=== PATIENT | female | born 1975 | race Caucasian/White ===

== ENCOUNTER 2017-09-03 07:05 | Day surgery (SDC) | payer OTHER ==
[~2017-09-03] VITALS: Ht 170.2 cm; Wt 119.9 kg
[~2017-09-03 07:05] MED LIST: AMLO5 PO; ATOR20; CARV3.125 PO; FURO20 PO; HYDACE10B PO; HYDCHL25; HYDCHL25 PO; HYDR1TAB94; IBUHYD PO; Imitrex50 MG; METF500 PO; POTA10T PO; TRAM50; ZESTRIL40 MG; ZYRTEC10 M1
== END 2017-09-03 09:30 | disposition home or self-care (01) ==
LOC: ORSCSDS 07:05
PROVIDERS: Internal Medicine Gastroenterology
PROC: 0DBL8ZX Excision of Transverse Colon, Via Natural or Artificial Opening Endoscopic, Diagnostic (ICD-10-PCS; principal; 2017-09-03 08:30)
PROC: 0DBN8ZX Excision of Sigmoid Colon, Via Natural or Artificial Opening Endoscopic, Diagnostic (ICD-10-PCS; principal; 2017-09-03 08:30)
PROC: 0DBK8ZX Excision of Ascending Colon, Via Natural or Artificial Opening Endoscopic, Diagnostic (ICD-10-PCS; principal; 2017-09-03 08:30)
PROC: 0DBH8ZX Excision of Cecum, Via Natural or Artificial Opening Endoscopic, Diagnostic (ICD-10-PCS; principal; 2017-09-03 08:30)
PROC: 0DBM8ZX Excision of Descending Colon, Via Natural or Artificial Opening Endoscopic, Diagnostic (ICD-10-PCS; principal; 2017-09-03 08:30)
DX: K92.1 Melena (principal); K64.8 Other hemorrhoids; K64.4 Residual hemorrhoidal skin tags; D12.0 Benign neoplasm of cecum; D12.2 Benign neoplasm of ascending colon; D12.3 Benign neoplasm of transverse colon; D12.4 Benign neoplasm of descending colon; K63.5 Polyp of colon; R79.89 Other specified abnormal findings of blood chemistry; R19.4 Change in bowel habit; Z86.010 Personal history of colon polyps; R10.31 Right lower quadrant pain; I10 Essential (primary) hypertension; Z79.899 Other long term (current) drug therapy; F32.9 Major depressive disorder, single episode, unspecified; E66.9 Obesity, unspecified; Z68.41 Body mass index [BMI] 40.0-44.9, adult; G47.33 Obstructive sleep apnea (adult) (pediatric)
CPT/HCPCS: 82947; 88305; J7120

== ENCOUNTER 2023-03-20 21:05 | Emergency (ER) | payer OTHER ==
[~2023-03-20] VITALS: Ht 170.2 cm; Wt 108.9 kg
[2023-03-20 21:12] VITALS: BP 163/89
== END 2023-03-20 23:10 | disposition home or self-care (01) ==
LOC: ER 21:05
DX: S80.02XA Contusion of left knee, initial encounter (principal); W10.1XXA Fall (on)(from) sidewalk curb, initial encounter; I10 Essential (primary) hypertension; Z88.8 Allergy status to other drugs, medicaments and biological substances; Z79.899 Other long term (current) drug therapy
CPT/HCPCS: 73562-LT; 99284-25

== ENCOUNTER 2024-09-01 07:02 | Day surgery (SDC) | payer OTHER ==
[~2024-09-01 07:02] MED LIST changes: +AMLO10 PO; -CARV3.125 PO; +Carvedilol12.5 MG PO; +GLUCOPHAGE1000 M1 PO; -HYDCHL25; -HYDR1TAB94; +HYDR1TAB94 PO; +JANUMET 50-1,01 EACH PO; +Lactated Ringer's 1,000 ML IV SCH; -METF500 PO; +OZEMPIC0.25 MG/02 SQ
[2024-09-01 07:42] VITALS: BP 150/87
[2024-09-01] MEDS ORDERED: propofoL 60 ML IV ONE (08:07)
[2024-09-01] MEDS ORDERED: Lidocaine HCl 4% 5 ML SDA ONE (08:10)
--- NOTE | 2024-09-01 08:19 | NUR ---
09/01/24 0819 Arnoldo Amador History, Chart, Medications and Allergies reviewed before start of procedure.MONITOR INTACT WITH CONTINUOUS PULSE OXIMETRY, CONTINUOUS END TITAL CO2, 3-LEAD EKG AND INTERMITTENT BLOOD PRESSURE.3-LEAD EKG REVIEWED WITH PHYSICIAN PRIOR TO START OF PROCEDURE.O2 VIA POM INTACT THROUGHOUT SEDATION/PROCEDURE.See Anesthesia record.
[2024-09-01] MEDS ORDERED: Midazolam HCl 1MG / ML 2ML Vial ONE ×2 (08:27→08:38)
[2024-09-01] MEDS ORDERED: Ondansetron HCl 2 MG / ML 2ML Vial IV PRN (08:55)
[2024-09-01 08:57] VITALS: BP 121/80
--- NOTE | 2024-09-01 09:21 | NUR ---
Discharge instructions reviewed with patient. Patient verbalizes understanding. Copy given to patient to take home. Patient States Post-Procedure ride home has been arranged. Discharged via wheelchair to private car for ride home.
== END 2024-09-01 09:20 | disposition home or self-care (01) ==
LOC: ORSCMMR 07:02 → ORD 08:00 → ORSCMMR 08:00
PROVIDERS: Internal Medicine Gastroenterology
PROC: 0DB48ZX Excision of Esophagogastric Junction, Via Natural or Artificial Opening Endoscopic, Diagnostic (ICD-10-PCS; principal; 2024-09-01 08:00)
PROC: 0DBL8ZX Excision of Transverse Colon, Via Natural or Artificial Opening Endoscopic, Diagnostic (ICD-10-PCS; principal; 2024-09-01 08:00)
PROC: 0DBN8ZX Excision of Sigmoid Colon, Via Natural or Artificial Opening Endoscopic, Diagnostic (ICD-10-PCS; principal; 2024-09-01 08:00)
DX: K21.9 Gastro-esophageal reflux disease without esophagitis (principal); K62.5 Hemorrhage of anus and rectum; Z86.0100 Personal history of colon polyps, unspecified; D12.3 Benign neoplasm of transverse colon; D12.5 Benign neoplasm of sigmoid colon; K44.9 Diaphragmatic hernia without obstruction or gangrene; I10 Essential (primary) hypertension; E11.9 Type 2 diabetes mellitus without complications; G47.33 Obstructive sleep apnea (adult) (pediatric); E66.01 Morbid (severe) obesity due to excess calories; Z68.35 Body mass index [BMI] 35.0-35.9, adult; Z79.84 Long term (current) use of oral hypoglycemic drugs; Z79.899 Other long term (current) drug therapy; Z79.85 Long-term (current) use of injectable non-insulin antidiabetic drugs
CPT/HCPCS: 82947; 88305; J2003; J2250; J2704; J7120

== ENCOUNTER → 2025-05-23 | Outpatient (CLI) | payer SELFPAY ==
[~2025-05-23] MED LIST changes: -Lactated Ringer's 1,000 ML IV SCH
== END ==
LOC: LAB SHORT 13:47 → LAB 13:47
DX: N39.0 Urinary tract infection, site not specified (principal)
CPT/HCPCS: 87086